=== PATIENT | male | born 2000 | race Caucasian/White ===

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

== ENCOUNTER 2022-05-15 14:23 | Emergency (ER) | payer OTHER ==
[~2022-05-15] VITALS: Ht 170.2 cm; Wt 133.6 kg
[2022-05-15 15:39] LABS: RSV AMPLIFICATION NEGATIVE (NEGATIVE)
[2022-05-15 16:23] VITALS: BP 143/87
[2022-05-15] MEDS ORDERED: AMOX500T PO (16:33)
== END 2022-05-15 16:46 | disposition home or self-care (01) ==
LOC: M ED 14:23 → EDBD 14:23 → M ED 16:46
DX: J18.9 Pneumonia, unspecified organism (principal); J06.9 Acute upper respiratory infection, unspecified

== ENCOUNTER → 2022-06-30 | Outpatient (REF) | payer OTHER, MEDICAID ==
[~2022-06-30] MED LIST: AMOX500T PO
[2022-06-30 17:12] LABS: ALBUMIN 3.7 G/DL (3.2-5.2); ALKALINE PHOSPHATASE 112 U/L (46-116); ALT/SGPT 23 U/L (7.0-40); AST/SGOT 17 U/L (<34); BILIRUBIN,TOTAL 0.5 MG/DL (0.3-1.2); BLOOD UREA NITROGEN 12 MG/DL (9-23); CALCIUM LEVEL 9.2 MG/DL (8.5-10.1); CARBON DIOXIDE LEVEL 28 MMOL/L (20-31); CHLORIDE LEVEL 104 MMOL/L (98-107); CHOLESTEROL LEVEL 185 MG/DL (<200); CHOLESTEROL RISK RATIO 4.61 (<5); CREATININE FOR GFR 0.81 MG/DL (0.70-1.30); GLUCOSE, FASTING 85 MG/DL (60-100); HDL CHOLESTEROL 40.1 MG/DL (>40); LDL CHOLESTEROL 122.5 MG/DL (<100); NON-HDL-C 144.9 MG/DL; POTASSIUM SERUM 4.2 MMOL/L (3.5-5.1); SODIUM LEVEL 139 MMOL/L (136-145); TOTAL PROTEIN 7.2 G/DL (5.7-8.2); TRIGLYCERIDES LEVEL 112 MG/DL (<150)
[2022-06-30 17:22] LABS: BASO # 0.1 10^3/uL (0.0-0.2); BASO % 0.6 % (0.0-1.0); EOS # 0.4 10^3/uL (0.0-0.5); EOS % 3.8 % (0.0-3.0); HEMATOCRIT 47.5 % (42.0-52.0); HEMOGLOBIN 15.3 g/dl (13.5-17.5); LYMPH # 2.8 10^3/uL (1.5-5.0); LYMPH % 24.5 % (24.0-44.0); MEAN CORPUSCULAR HEMOGLOBIN 28.3 pg (27.0-33.0); MEAN CORPUSCULAR HGB CONC 32.2 g/dl (32.0-36.5); MONO # 0.7 10^3/uL (0.0-0.8); MONO % 6.1 % (2.0-8.0); NEUTROPHILS # 7.4 10^3/uL (1.5-8.5); NEUTROPHILS % 64.4 % (36.0-66.0); PLATELET COUNT, AUTOMATED 388 10^3/uL (150-450); WHITE BLOOD COUNT 11.4 10^3/uL (4.0-10.0)
[2022-06-30 17:57] LABS: HEMOGLOBIN A1c 5.5 % (4.0-6.0)
[2022-06-30 18:02] LABS: THYROID STIMULATING HORMONE 3.282 uIU/ML (0.48-4.17)
== END ==
LOC: M LAB REF 16:26
PROVIDERS: ATTEND Nurse Practitioner Family
DX: E66.3 Overweight (principal); E55.9 Vitamin D deficiency, unspecified; Z11.9 Encounter for screening for infectious and parasitic diseases, unspecified; R53.83 Other fatigue

== ENCOUNTER 2022-10-17 17:41 | Emergency (ER) | payer OTHER ==
[~2022-10-17] VITALS: Ht 170.2 cm; Wt 134.7 kg
[2022-10-17 17:41] VITALS: TEMP 98.6
[2022-10-17] MEDS ORDERED: PSEUDOEPHEDRINE 30 MG TAB PO STA (18:59)
[2022-10-17] MEDS ORDERED: BENZONATATE 100MG CAPSULE PO ONE (19:00)
[2022-10-17 21:29] LABS: RSV AMPLIFICATION NEGATIVE (NEGATIVE)
[2022-10-17] MEDS ORDERED: PSEU120T19 PO (21:40)
[2022-10-17] MEDS ORDERED: FLON1SPR NARES (21:40)
[2022-10-17] MEDS ORDERED: BENZ200C70 PO (21:40)
[2022-10-17 21:50] VITALS: BP 144/92; O2SAT 99
== END 2022-10-17 21:52 | disposition home or self-care (01) ==
LOC: M ED 17:41
DX: J06.9 Acute upper respiratory infection, unspecified (principal); Z79.2 Long term (current) use of antibiotics; Z79.899 Other long term (current) drug therapy

== ENCOUNTER → 2023-10-19 | Outpatient (REF) | payer OTHER ==
[~2023-10-19] MED LIST changes: +BENZ200C70 PO; +FLON1SPR NARES; +PSEU120T19 PO
[2023-10-20 13:52] LABS: HEMOGLOBIN A1c 5.4 % (4.0-6.0)
[2023-10-20 14:01] LABS: BLOOD UREA NITROGEN 12 MG/DL (9-23); CALCIUM LEVEL 9.5 MG/DL (8.5-10.1); CARBON DIOXIDE LEVEL 26 MMOL/L (20-31); CHLORIDE LEVEL 106 MMOL/L (98-107); CHOLESTEROL LEVEL 182 MG/DL (<200); CHOLESTEROL RISK RATIO 5.51 (<5); CREATININE FOR GFR 0.81 MG/DL (0.70-1.30); GLUCOSE, FASTING 102 MG/DL (60-100); LDL CHOLESTEROL 117.8 MG/DL (<100); POTASSIUM SERUM 5.8 MMOL/L (3.5-5.1); SODIUM LEVEL 137 MMOL/L (136-145); THYROID STIMULATING HORMONE 1.949 uIU/ML (0.48-4.17); TRIGLYCERIDES LEVEL 156 MG/DL (<150)
== END ==
LOC: M LAB REF 13:04
PROVIDERS: ATTEND Nurse Practitioner Family
DX: E66.8 Other obesity (principal); E78.00 Pure hypercholesterolemia, unspecified; Z68.42 Body mass index [BMI] 45.0-49.9, adult

== ENCOUNTER 2024-04-22 19:47 | Emergency (ER) | payer OTHER, SELFPAY ==
[~2024-04-22] VITALS: Ht 170.2 cm; Wt 143.5 kg
[2024-04-23] MEDS ORDERED: BENZ200C70 PO
[2024-04-23] MEDS ORDERED: PSEU-52 PO
[2024-04-23] MEDS: ACETAMINOPHEN 500 MG TAB PO ONE (00:38)
[2024-04-23] MEDS: BENZONATATE 100MG CAPSULE PO ONE (00:38)
[2024-04-23 00:50] VITALS: BP 140/92; TEMP 97; O2SAT 96
== END 2024-04-23 00:55 | disposition home or self-care (01) ==
LOC: M ED 19:47
DX: J06.9 Acute upper respiratory infection, unspecified (principal); B97.4 Respiratory syncytial virus as the cause of diseases classified elsewhere; F10.10 Alcohol abuse, uncomplicated; Z79.899 Other long term (current) drug therapy; Z79.2 Long term (current) use of antibiotics

== ENCOUNTER → 2025-02-10 | Outpatient (REF) | payer OTHER ==
[~2025-02-10] MED LIST changes: +PSEU-52 PO
== END ==
LOC: M LAB REF 17:00
PROVIDERS: ATTEND Physician Assistant Medical
DX: B34.9 Viral infection, unspecified (principal)